=== PATIENT | male | born 1975 | race Caucasian/White ===

== ENCOUNTER 2016-08-17 13:25 | Emergency (ER) | payer MEDICAID ==
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
[2016-08-17] MEDS ORDERED: 0.9 % SODIUM CHLORIDE 1,000 ML BAG IV ONE (14:14)
[2016-08-17] MEDS ORDERED: HYDROMORPHONE HCL 1 MG/ML CPJ IVP ONE ×2 (14:22→15:54)
[2016-08-17] MEDS ORDERED: ONDANSETRON HCL IV 4 MG/2 ML VIAL IVP ONE (14:22)
[2016-08-17 14:36] LABS: BASO % 0.6 % (0-6); EOS % 1.5 % (0-6); GRAN % 58.7 % (47-80); HEMATOCRIT 42.2 % (42.0-52.0); HEMOGLOBIN 14.6 gm/dl (14.0-18.0); LYMPH % 32.9 % (16-45); MEAN CELL VOLUME 88.5 fl (81-97); MEAN CORPUSCULAR HEMOGLOBIN 30.6 pg (27-33); MEAN CORPUSCULAR HGB CONC 34.6 g/dl (32-36); MONO % 6.3 % (0-9); PLATELET COUNT 407 K/uL (130-400); RED BLOOD COUNT 4.77 M/uL (4.40-5.70); RED CELL DISTRIBUTION WIDTH 13.2 % (11.5-14.5); URINE APPEARANCE CLEAR; URINE BILIRUBIN NEGATIVE (NEGATIVE); URINE BLOOD NEGATIVE (NEGATIVE); URINE COLOR YELLOW; URINE GLUCOSE (UA) NEGATIVE (NEGATIVE); URINE KETONE NEGATIVE (NEGATIVE); URINE LEUKOCYTE ESTERASE NEGATIVE (NEGATIVE); URINE NITRITE NEGATIVE (NEGATIVE); URINE PROTEIN NEGATIVE (NEGATIVE); URINE UROBILINOGEN 0.2 E.U./dL (0.20 - 1.00); WHITE BLOOD COUNT W/O DIFF 7.1 K/uL (4.2-12.2)
[2016-08-17 14:52] LABS: ALBUMIN 4.9 gm/dL (3.5-5.0); ALKALINE PHOSPHATASE 110 U/L (38-126); ALT/SGPT 95 U/L (21-72); ANION GAP 13.5 (7-16); AST/SGOT 26 U/L (17-59); BILIRUBIN,TOTAL 0.21 mg/dL (0.2-1.3); BLOOD UREA NITROGEN 15 mg/dL (9-20); CARBON DIOXIDE 26.5 mmol/L (22-30); CREATININE 0.9 mg/dL (0.66-1.25); EST GLOMERULAR FILTRATION RATE > 60 ml/min; GLUCOSE,RANDOM 91 mg/dL (70-110); LIPASE 143 U/L (23-300); TOTAL PROTEIN 7.8 gm/dL (6.3-8.2)
== END 2016-08-17 17:51 | disposition home or self-care (01) ==
LOC: ER 13:25
DX: K62.89 Other specified diseases of anus and rectum (principal); R10.32 Left lower quadrant pain; R10.31 Right lower quadrant pain; R11.0 Nausea; I25.2 Old myocardial infarction; F17.210 Nicotine dependence, cigarettes, uncomplicated
CPT/HCPCS: 99284 ×2; 96376; 96374; 96375; 83690; 85025; 80076; 80048; 81003; 74177; Q9967; J2405; J1170; J7030

== ENCOUNTER 2018-08-20 21:17 | Emergency (ER) | payer BC ==
[2018-08-20] MEDS ORDERED: HYDROMORPHONE HCL 2 MG/ML VIAL IVP ONE ×2 (21:27→22:00)
[2018-08-20] MEDS ORDERED: ONDANSETRON HCL IV 4 MG/2 ML VIAL IVP ONE (21:27)
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
[2018-08-20] MEDS ORDERED: 0.9 % SODIUM CHLORIDE 1000ML 1,000 ML IV SCH (21:30)
[2018-08-20] MEDS ORDERED: FENTANYL PF 100MCG/2ML VIAL IVP ONE (22:48)
== END 2018-08-20 23:18 | disposition short-term general hospital (02) ==
LOC: ER 21:17
DX: M54.2 Cervicalgia (principal); R29.898 Other symptoms and signs involving the musculoskeletal system; I25.2 Old myocardial infarction; F17.210 Nicotine dependence, cigarettes, uncomplicated
CPT/HCPCS: 99285 ×2; 96374; 96375; J2405; J3010; J1170

== ENCOUNTER 2018-10-07 04:46 | Emergency (ER) | payer BC ==
[2018-10-07] MEDS ORDERED: ALPRAZOLAM 0.25 MG TABLET PO ONE (05:07)
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
== END 2018-10-07 05:52 | disposition home or self-care (01) ==
LOC: ER 04:46
DX: F41.0 Panic disorder [episodic paroxysmal anxiety] (principal); I25.2 Old myocardial infarction; F17.210 Nicotine dependence, cigarettes, uncomplicated
CPT/HCPCS: 99283

== ENCOUNTER 2019-04-08 12:48 | Emergency (ER) | payer BC, OTHER ==
[2019-04-08] MEDS ORDERED: ACETAMINOPHEN 325 MG TAB PO ONE (13:01)
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
--- NOTE | 2019-04-08 13:44 | RADIOLOGY REPORT ---
EXAMINATION: Right Ankle, Complete Minimum Three Views EXAM DATE: 04/08/2019 1:27 PM TECHNIQUE: AP, lateral, and oblique INDICATION: trauma COMPARISON: None ENCOUNTER: Initial FINDINGS: There is no bone or joint abnormality. IMPRESSION: Within normal limits. Dictated by: Ben Ford DO on 04/08/2019 1:42 PM. .
--- NOTE | 2019-04-08 13:46 | RADIOLOGY REPORT ---
EXAMINATION: Right Hand, Minimum Three Views EXAM DATE: 04/08/2019 1:27 PM TECHNIQUE: PA, lateral, and oblique INDICATION: trauma COMPARISON: None ENCOUNTER: Initial FINDINGS: There is no bone or joint abnormality. IMPRESSION: Within normal limits. Dictated by: Ben Ford DO on 04/08/2019 1:43 PM. .
== END 2019-04-08 13:58 | disposition home or self-care (01) ==
LOC: ER 12:48
DX: S93.402A Sprain of unspecified ligament of left ankle, initial encounter (principal); S93.401A Sprain of unspecified ligament of right ankle, initial encounter; M79.641 Pain in right hand; W18.09XA Striking against other object with subsequent fall, initial encounter; Y92.512 Supermarket, store or market as the place of occurrence of the external cause; Y99.0 Civilian activity done for income or pay; I25.2 Old myocardial infarction; F17.210 Nicotine dependence, cigarettes, uncomplicated
CPT/HCPCS: 99284